=== PATIENT | female | born 1960 | race Caucasian/White ===

== ENCOUNTER 2019-02-26 20:38 | Emergency (ER) | payer OTHER ==
[2019-02-26] MEDS ORDERED: hydrALAZINE INJ 20 MG/ML VIAL IV ONE (21:00)
[2019-02-26] MEDS ORDERED: HYDROMORPHONE HCL 0.5 MG/ 0.5 ML SYRINGE (J1170 PER 1) IV PRN (21:15)
[2019-02-26] MEDS ORDERED: NS 1,000 ML IV SCH (21:59)
[2019-02-26] MEDS ORDERED: KETAMINE HCL 200 MG/20 ML VIAL IV ONE ×2 (22:00→23:15)
[2019-02-26] MEDS ORDERED: ONDANSETRON 4MG/2ML VIAL (J2405) IV ONE (22:00)
[2019-02-26] MEDS: propofoL 200 MG/20 ML VIAL IV PRN ×3 (22:31→22:43)
[2019-02-27] MEDS: propofoL 200 MG/20 ML VIAL IV PRN ×2 (01:21→01:22)
[2019-02-27 01:45] VITALS: BP 130/78
--- NOTE | 2019-02-27 07:37 | REP ---
Status post reduction. Two portable neutral/AP views of the right shoulder. Findings: Satisfactory reduction to the glenohumeral joint noted. Underlying age-related osteopenia and degenerative changes identified. No obvious acute fracture. Impression: Satisfactory reduction. Electronically Signed by Jose Serna MD 02/27/2019 07:29 A
--- NOTE | 2019-02-27 07:53 | REP ---
Clinical: Right shoulder trauma/pain Technique: Neutral and Y views of the right shoulder. Findings: Anteroinferior glenohumeral joint dislocation is appreciated. Underlying degenerative changes noted. Impaction injury of the to the humeral head cannot be excluded. Impression: Anteroinferior glenohumeral joint dislocation. Electronically Signed by Jose Serna MD 02/27/2019 07:44 A
--- NOTE | 2019-02-27 07:54 | REP ---
Clinical: Trauma. Pain. Technique: Portable Y view right shoulder. Findings: Anteroinferior glenohumeral joint dislocation noted. No obvious acute fracture. Electronically Signed by Jose Serna MD 02/27/2019 07:44 A
[2019-02-28] MEDS ORDERED: TYLETAB14 PO (16:21)
== END 2019-02-27 01:47 | disposition home or self-care (01) ==
LOC: M ED 20:38
DX: S43.014A Anterior dislocation of right humerus, initial encounter (principal); W01.0XXA Fall on same level from slipping, tripping and stumbling without subsequent striking against object, initial encounter; Y92.410 Unspecified street and highway as the place of occurrence of the external cause; I10 Essential (primary) hypertension; Z88.2 Allergy status to sulfonamides; Z88.5 Allergy status to narcotic agent; Z88.8 Allergy status to other drugs, medicaments and biological substances
CPT/HCPCS: 23650; 73020; 73030; 93041; 94760; 96361; 96374; 96375; 99156; 99157; 99285; J1170; J2405

== ENCOUNTER 2019-02-28 14:13 | Emergency (ER) | payer OTHER ==
[~2019-02-28] VITALS: Ht 152.4 cm; Wt 98.0 kg
[2019-02-28 14:14] VITALS: BP 118/70
--- NOTE | 2019-02-28 15:53 | REP ---
Clinical: Fall. Pain. Technique: Frontal view of the chest with five views of the hemithoraces. Findings: Frontal view of the chest appears normal and without consolidation/contusion, effusion or pneumothorax. Bilateral hemithoraces appear intact without obvious acute fracture. Impression: No acute rib fracture identified. Electronically Signed by Jose Serna MD 02/28/2019 03:44 P
[2019-02-28] MEDS ORDERED: TYLETAB14 PO (16:21)
== END 2019-02-28 16:28 | disposition home or self-care (01) ==
LOC: M ED 14:13
DX: S20.211A Contusion of right front wall of thorax, initial encounter (principal); S20.212A Contusion of left front wall of thorax, initial encounter; W01.0XXD Fall on same level from slipping, tripping and stumbling without subsequent striking against object, subsequent encounter; Y92.410 Unspecified street and highway as the place of occurrence of the external cause; I10 Essential (primary) hypertension; Z88.2 Allergy status to sulfonamides; Z88.5 Allergy status to narcotic agent; Z88.8 Allergy status to other drugs, medicaments and biological substances